=== PATIENT | male | born 1980 | race Caucasian/White ===

== ENCOUNTER → 2016-06-25 | Outpatient (CLI) | payer BC, MEDICARE | LOC: LAB 08:19 | DX: Z12.5 Encounter for screening for malignant neoplasm of prostate (principal); E29.1 Testicular hypofunction; R53.83 Other fatigue; N40.1 Benign prostatic hyperplasia with lower urinary tract symptoms | CPT/HCPCS: 36415; 82627; 82670; 83002; 84146; 84270; 84402; 84403; G0103 ==

== ENCOUNTER → 2020-07-02 | Outpatient (CLI) | payer BC, MEDICARE ==
[~2020-07-02] VITALS: Ht 152.4 cm; Wt 68.0 kg
== END ==
LOC: OPSV 09:00
DX: M80.88XA Other osteoporosis with current pathological fracture, vertebra(e), initial encounter for fracture (principal)
CPT/HCPCS: 96365; J3489

== ENCOUNTER → 2020-08-13 | Outpatient (CLI) | payer BC, MEDICARE | LOC: EXRD 10:22 | DX: M25.619 Stiffness of unspecified shoulder, not elsewhere classified (principal); M25.519 Pain in unspecified shoulder; M40.50 Lordosis, unspecified, site unspecified; M43.8X2 Other specified deforming dorsopathies, cervical region | CPT/HCPCS: 72040; 73030 ==

== ENCOUNTER → 2021-05-19 | Outpatient (CLI) | payer BC, MEDICARE ==
[~2021-05-19] VITALS: Ht 152.4 cm; Wt 77.1 kg
== END ==
LOC: EROP 10:56
DX: U07.1 COVID-19 (principal); Z23 Encounter for immunization; I10 Essential (primary) hypertension; J98.4 Other disorders of lung
CPT/HCPCS: M0247; Q0247

== ENCOUNTER → 2021-12-03 | Outpatient (CLI) | payer BC, MEDICARE ==
[~2021-12-03] VITALS: Ht 152.4 cm; Wt 80.7 kg
[2021-12-03 08:57] LABS: HEMOGLOBIN 14.3 gm/dl (14.0-17.5); RED BLOOD COUNT 4.53 M/UL (4.20-5.50); WHITE BLOOD COUNT 6.8 K/UL (4.5-11.0)
[2021-12-03 09:37] LABS: BUN/CREATININE RATIO 26 (0-10)
== END ==
LOC: OPSV 08:00
PROVIDERS: Nurse Practitioner Family
DX: M81.0 Age-related osteoporosis without current pathological fracture (principal); N20.0 Calculus of kidney; M54.9 Dorsalgia, unspecified; K59.00 Constipation, unspecified; E78.00 Pure hypercholesterolemia, unspecified; R27.0 Ataxia, unspecified; E55.9 Vitamin D deficiency, unspecified; M10.9 Gout, unspecified; I10 Essential (primary) hypertension
CPT/HCPCS: 80053; 80061; 82607; 84439; 84443; 84550; 85025; 96365; J3489